=== PATIENT | female | born 1945 | race Caucasian/White ===

== ENCOUNTER → 2017-08-30 | Outpatient (CLI) | payer OTHER ==
[~2017-08-30] MED LIST: ABAC300; ALBU90OI61; AMIT10; ASPI81CH; ASPI81CH PO; FURO40; GABA300; HYDCHL50; HYDR1TAB94 PO; INSUASPI; INSULANPEN; LINZESS145 MCG; LISI20; MAGNESIUM PO; METO100ER; METO100ER PO; POTCHL10ER; PRAVASTATIN SOD10 MG; Prozac20 MG; SIMV10; TOUJEO SOL300 UNIT/1 INJ; TRAM50; TRAZ50
[2017-08-30 17:59] LABS: U Amphetamine Screen Not Detected; U Barbituate Screen Not Detected; U Benzodiazapine Screen Not Detected; U Buprenorphine Screen Not Detected; U Cannabinoids Screen Not Detected; U Cocaine Screen Not Detected; U Methadone Screen Not Detected; U Methamphetamine Screen Not Detected; U Opiates Screen DETECTED; U Oxycodone Screen Not Detected; U Phencyclidine Screen Not Detected; U Propoxyphene Screen Not Detected
[2017-09-01 14:20] LABS: Codeine Not Detected (NOTDET); Hydrocodone 357 ng/mL (NOTDET); Hydromorphone Not Detected (NOTDET); Morphine Not Detected (NOTDET); Norhydrocodone 231 ng/mL (NOTDET); Noroxycodone Not Detected (NOTDET)
== END ==
LOC: LAB 17:05
PROVIDERS: Internal Medicine
DX: Z51.81 Encounter for therapeutic drug level monitoring (principal); Z79.899 Other long term (current) drug therapy
CPT/HCPCS: G0480

== ENCOUNTER 2017-09-09 09:08 | Day surgery (SDC) | payer OTHER ==
[~2017-09-09] VITALS: Ht 157.5 cm; Wt 116.1 kg
== END 2017-09-09 11:45 | disposition home or self-care (01) ==
LOC: ORSCMMR 09:08
PROVIDERS: Internal Medicine Gastroenterology
PROC: 0DB98ZX Excision of Duodenum, Via Natural or Artificial Opening Endoscopic, Diagnostic (ICD-10-PCS; principal; 2017-09-09 10:30)
PROC: 0DB48ZX Excision of Esophagogastric Junction, Via Natural or Artificial Opening Endoscopic, Diagnostic (ICD-10-PCS; principal; 2017-09-09 10:30)
PROC: 0DB68ZX Excision of Stomach, Via Natural or Artificial Opening Endoscopic, Diagnostic (ICD-10-PCS; principal; 2017-09-09 10:30)
PROC: 0DB88ZX Excision of Small Intestine, Via Natural or Artificial Opening Endoscopic, Diagnostic (ICD-10-PCS; principal; 2017-09-09 10:30)
DX: K92.1 Melena (principal); K21.9 Gastro-esophageal reflux disease without esophagitis; R10.9 Unspecified abdominal pain; E11.9 Type 2 diabetes mellitus without complications; I10 Essential (primary) hypertension; E78.00 Pure hypercholesterolemia, unspecified; Z79.82 Long term (current) use of aspirin; Z79.4 Long term (current) use of insulin; Z79.899 Other long term (current) drug therapy
CPT/HCPCS: 82947; 88305; 88342; J2250; J3010; J7120

== ENCOUNTER → 2018-09-26 | Outpatient (CLI) | payer OTHER | LOC: LAB 12:48 → LAB SHORT 12:48 → LAB FUT 08-02 15:40 | DX: E78.5 Hyperlipidemia, unspecified (principal); F32.9 Major depressive disorder, single episode, unspecified; M79.7 Fibromyalgia; J45.909 Unspecified asthma, uncomplicated; I10 Essential (primary) hypertension; E11.9 Type 2 diabetes mellitus without complications; G99.0 Autonomic neuropathy in diseases classified elsewhere | CPT/HCPCS: 82043 ==

== ENCOUNTER → 2019-10-06 | Outpatient (CLI) | payer OTHER | LOC: LAB SHORT 16:20 → LAB 16:20 | DX: D18.01 Hemangioma of skin and subcutaneous tissue (principal); L08.9 Local infection of the skin and subcutaneous tissue, unspecified | CPT/HCPCS: 87070; 87077; 87186; 87205 ==

== ENCOUNTER 2022-03-14 15:02 | Inpatient (IN) | payer OTHER ==
[~2022-03-14] VITALS: Ht 157.5 cm; Wt 113.4 kg
[~2022-03-14 15:02] MED LIST changes: -FURO40; +FURO40 PO; -GABA300; +GABA300 PO; -INSUASPI; -LISI20; +LISI20 PO; +NOVOLOG FL100 UNIT/3 SC; -POTCHL10ER; +POTCHL10ER PO; +PRAV20 PO; -PRAVASTATIN SOD10 MG; -Prozac20 MG; +Prozac20 MG PO; -TOUJEO SOL300 UNIT/1 INJ; +TOUJEO SOL300 UNIT/2 SC; -TRAZ50; +TRAZ50 PO
[2022-03-14 16:58] LABS: Hematocrit 44.2 % (33.0-51.0); Hemoglobin 14.3 g/dL (11.5-16.0); Mean Corpuscular HGB 29.5 pg (26.0-34.0); Mean Corpuscular HGB Conc 32.4 g/dL (31.5-36.5); Mean Corpuscular Volume 91 fL (80-100); Mean Platelet Volume 10.7 fL (9.1-12.4); Platelet Count 144 K/mm3 (150-400); RDW Coefficient Variation 13.7 % (11.7-14.2); RDW Standard Deviation 46.5 fL (35.1-46.3); Red Blood Cell Count 4.85 M/mm3 (3.80-5.20); White Blood Cell Count 29.21 K/mm3 (4.00-11.30)
[2022-03-14 17:13] LABS: Bun/Creatinine Ratio 21.9 (12.0-20.0); Calcium, Blood 8.4 mg/dL (8.5-10.1); Creatinine, Blood 1.28 mg/dL (0.40-1.00); Potassium, Blood 5.4 mmol/L (3.5-5.5)
[2022-03-14 17:32] LABS: Influenza A, PCR NEGATIVE (NEGATIVE); Influenza B, PCR NEGATIVE (NEGATIVE); Resp Syncytial Virus, PCR NEGATIVE (NEGATIVE); SARS-Cov-2 (COVID-19) PCR, MMC NEGATIVE (NEGATIVE)
[2022-03-14 17:54] LABS: Source, Urine Foley catheter
[2022-03-14 18:06] LABS: Appearance, Urine Clear (Clear); Bilirubin, Urine Neg (Neg); Blood, Urine Neg (Neg); Color, Urine Yellow (P-Yellow); Glucose Qualitative, Urine Neg (Neg); Ketones, Urine Neg (Neg); Leukocyte Esterase, Urine Neg (Neg); Nitrite, Urine Neg (Neg); Protein, Urine Neg (Neg); Urobilinogen, Urine NORM (Normal)
[2022-03-14] MEDS ORDERED: FLUT1DIS5 INH (18:42)
[2022-03-14] MEDS ORDERED: GABA300 PO (18:44)
[2022-03-14] MEDS ORDERED: HYDHCL25 PO (18:45)
[2022-03-14] MEDS ORDERED: GUAI600T33 PO (18:47)
[2022-03-14] MEDS ORDERED: PANT40 PO (18:49)
[2022-03-14 20:50] LABS: BASOPHILS PERCENT MAN 0 % (0-2); BLASTS PERCENT MAN 8 % (0-0); EOSINOPHILS ABSOLUTE MAN 0.58 K/mm3 (0.00-0.68); EOSINOPHILS PERCENT MAN 2 % (0-6); LYMPHOCYTES % ATYPICAL MANUAL 10 % (0-0); LYMPHOCYTES ABSOLUTE MAN 18.11 K/mm3 (0.84-5.20); LYMPHOCYTES PERCENT MAN 52 % (21-46); MONOCYTES ABSOLUTE MAN 1.46 K/mm3 (0.16-1.47); MONOCYTES PERCENT MAN 5 % (4-13); NEUTROPHILS ABSOLUTE MAN 6.71 K/mm3 (1.96-9.15); SEG NEUTROPHILS PERCENT MAN 23 % (41-73); TOTAL CELLS COUNTED 100
[2022-03-15 04:20] LABS: Hematocrit 42.7 % (33.0-51.0); Hemoglobin 13.5 g/dL (11.5-16.0); Mean Corpuscular HGB 29.1 pg (26.0-34.0); Mean Corpuscular HGB Conc 31.6 g/dL (31.5-36.5); Mean Corpuscular Volume 92 fL (80-100); Mean Platelet Volume 10.8 fL (9.1-12.4); Platelet Count 142 K/mm3 (150-400); RDW Coefficient Variation 13.8 % (11.7-14.2); RDW Standard Deviation 46.8 fL (35.1-46.3); Red Blood Cell Count 4.64 M/mm3 (3.80-5.20); White Blood Cell Count 29.41 K/mm3 (4.00-11.30)
[2022-03-15 07:30] LABS: BASOPHILS PERCENT MAN 0 % (0-2); BLASTS PERCENT MAN 3 % (0-0); EOSINOPHILS PERCENT MAN 0 % (0-6); LYMPHOCYTES ABSOLUTE MAN 20.58 K/mm3 (0.84-5.20); MONOCYTES ABSOLUTE MAN 1.17 K/mm3 (0.16-1.47); MONOCYTES PERCENT MAN 4 % (4-13); NEUTROPHILS ABSOLUTE MAN 6.76 K/mm3 (1.96-9.15); SEG NEUTROPHILS PERCENT MAN 23 % (41-73); TOTAL CELLS COUNTED 100
[2022-03-15 07:31] LABS: LYMPHOCYTES % ATYPICAL MANUAL 6 % (0-0); LYMPHOCYTES PERCENT MAN 64 % (21-46)
--- NOTE | 2022-03-15 07:41 | NUR ---
ASSUMED CARE AT 0216. PT RESTING.NPO PREOP. KIRKPATRICK WITH CLEAR YELLOW.PT WITHOUT C/O.
--- NOTE | 2022-03-15 14:57 | NUR ---
PT ARRIVED BACK TO UNIT FROM PACU AT APROX 1200. PT HAS TWO FOAM DRESSINGS TO L HIP. REPORTS FULL SENSATION TO BLE. WIGGLES TOES ON COMMAND. REPORTED PAIN AFTER ARRIVAL, PT GIVEN 5MG ROXICODONE AND REPORTS GOOD PAIN RELIEF. SALINE LOCKED PER DR MIX. GOOD PO INTAKE. KIRKPATRICK PATENT, DRAINING CLEAR YELLOW URINE.
[2022-03-16 04:14] LABS: Hematocrit 37.2 % (33.0-51.0); Mean Corpuscular HGB 29.3 pg (26.0-34.0); Mean Corpuscular HGB Conc 32.3 g/dL (31.5-36.5); Mean Corpuscular Volume 91 fL (80-100); Mean Platelet Volume 11.2 fL (9.1-12.4); Platelet Count 147 K/mm3 (150-400); RDW Coefficient Variation 13.4 % (11.7-14.2); RDW Standard Deviation 44.6 fL (35.1-46.3); Red Blood Cell Count 4.09 M/mm3 (3.80-5.20)
[2022-03-16 04:28] LABS: Albumin/Globulin Ratio 1.1 (0.8-1.8); Bilirubin, Total 0.4 mg/dL (0.1-1.0); Bun/Creatinine Ratio 25.8 (12.0-20.0); Calcium, Blood 7.7 mg/dL (8.5-10.1); Creatinine, Blood 1.78 mg/dL (0.40-1.00); Globulin, Blood 2.8 g/dL (2.2-4.0); Magnesium, Blood 2.4 mg/dL (1.6-2.4); Potassium, Blood 5.3 mmol/L (3.5-5.5); Total Protein, Blood 5.8 g/dL (6.4-8.2)
--- NOTE | 2022-03-16 04:50 | NUR ---
SHIFT SUMMARY POD1 L HIP PINNING WITH . L HIP WITH GAUZE AND FOAM TAPE, REMAIN CDI. PT'S CBG OVER 300 BEFORE BEDTIME, CALLED DR. COELHO. ONE TIME DOSE OF 3UNITS HUMILIN ADMINISTERED. AC/HS FOR CBG. PT AOX4. KIRKPATRICK IN PLACED. SALINE LOCKED. TOLERATING PO INTAKE, DENIES NAUSEA AND VOMITING. VSS. PT ON 2L NC AT NIGHT. SATS WNL. PT REPORTS MODERATE PAIN T/O SHIFT. PAIN MANAGED WITH OXYCODONE. CALL LIGHT WITHIN REACH. WILL CONTINUE TO MONITOR AND WILL PROVIDE REPORT TO ONCOMING NURSE.
--- NOTE | 2022-03-16 06:04 | NUR ---
LABS REVIEWED, CALLED AND NOTIFIED DR. WARD ABOUT WBC AND KIDNEY FUNCTION. HE WILL REVIEW THE PT'S LABS/CHART. NO ORDERS AT THIS TIME. WILL CONTINUE TO MONITOR.
[2022-03-16 07:07] LABS: BASOPHILS PERCENT MAN 0 % (0-2); EOSINOPHILS PERCENT MAN 0 % (0-6); LYMPHOCYTES % ATYPICAL MANUAL 2 % (0-0); LYMPHOCYTES ABSOLUTE MAN 27.46 K/mm3 (0.84-5.20); MONOCYTES ABSOLUTE MAN 3.98 K/mm3 (0.16-1.47); MONOCYTES PERCENT MAN 9 % (4-13); NEUTROPHILS ABSOLUTE MAN 11.07 K/mm3 (1.96-9.15); SEG NEUTROPHILS PERCENT MAN 25 % (41-73); TOTAL CELLS COUNTED 100
[2022-03-16 07:08] LABS: BLASTS PERCENT MAN 4 % (0-0)
[2022-03-16 07:11] LABS: LYMPHOCYTES PERCENT MAN 60 % (21-46)
--- NOTE | 2022-03-16 18:09 | NUR ---
SHIFT SUMMARY PT WAS ONLY ABLE TO DANGLE w/ THERAPY. BP HAS BEEN TRENDING LOW; MD CALLED & NOTIFIED. PAIN HAS BEEN REASONABLY CONTROLLED. JED WAS CHNAGED BY DR GARDUNO DURING HIS ROUNDS. NO NEW DRNG NOTED.
--- NOTE | 2022-03-17 04:13 | NUR ---
SHIFT SUMMARY PATIENT RESTING COMFORTABLY AT THIS TIME. AOX4. TOLERATING PO INTAKE. PAIN MANAGED WITH 5MG OXY PER EMAR. KIRKPATRICK PATENT AND DRAINING, WILL DC THIS AM. PLAN FOR THERAPY TODAY. ABLE TO REPOSITON WITH ASSISTANCE. SBP UP FROM 90'S TO 125 SATS ABOVE 94% ON 2LNC. DENIES SOB, CHEST PAIN. ENCOURAGED DEEP BREATHING AND COUGHING, IS. CALL LIGHT IN REACH. WILL REPORT TO DAY RN.
[2022-03-17 08:55] LABS: Hematocrit 35.2 % (33.0-51.0); Hemoglobin 11.4 g/dL (11.5-16.0); Mean Corpuscular HGB 29.3 pg (26.0-34.0); Mean Corpuscular HGB Conc 32.4 g/dL (31.5-36.5); Mean Corpuscular Volume 91 fL (80-100); Mean Platelet Volume 11.1 fL (9.1-12.4); Platelet Count 151 K/mm3 (150-400); RDW Coefficient Variation 13.6 % (11.7-14.2); RDW Standard Deviation 45.1 fL (35.1-46.3); Red Blood Cell Count 3.89 M/mm3 (3.80-5.20); White Blood Cell Count 46.51 K/mm3 (4.00-11.30)
[2022-03-17 09:15] LABS: Bun/Creatinine Ratio 25.8 (12.0-20.0); Calcium, Blood 7.9 mg/dL (8.5-10.1); Creatinine, Blood 2.64 mg/dL (0.40-1.00); Potassium, Blood 4.9 mmol/L (3.5-5.5)
--- NOTE | 2022-03-17 17:51 | NUR ---
SHIFT SUMMARY PT's MENTATION IS MUCH CLEARER TODAY BUT STILL HAS A HARD TIME FOCUSING ON ONE THING & CHANGES TOPICS QUICKLY. WAS ABLE TO GET UP TO BSC x 2 & SAT UP IN RECLINED CHAIR FOR SEVERAL HOURS. BACK TO BED FOR DINNER w/ LLE ELEVATED. PASSING LOTS OF GAS BUT NO BM. DIET IS IMPROVING. ALTHOUGH PT STATES PAIN IS NOT IMPROVED SHE IS MOANING & MAKING MUCH LESS NOISES THAT REFLECT PAIN WELL RATING HER PAIN SCALE LOWER.
--- NOTE | 2022-03-17 18:00 | NUR ---
SHIFT SUMMARY PT WAS ABLE TO HAVE 2 THERPY SESSIONS TODAY. 1 IN AM & 1 IN AFTERNOON. WAS ABLE TO SEMI-STAND THIS AM BUT WAS TOO TIRED FOR MUCH ACTIVITY IN AFTERNOON SESSION. NEPHROLOGY TELE-CONSULT WAS COMPLETED. IVF STARTED. PT HAS POOR APPETITE BUT IS SNACKING T/O DAY. BLOOD SUGARS STILL ELEVATED BUT BP TRENDING WELL.
--- NOTE | 2022-03-18 05:59 | NUR ---
SHIFT SUMMARY PT A&OX4, PLEASANT AND COOPERATIVE. MEDICATED FOR PAIN ONCE DURING SHIFT. URINE COLLECTION WAS OBTAINED AND KIRKPATRICK UNCLAMPED, PATIENT AND DRAINING TO GRAVITY. UPPER DRESSING HAD SHADOWING, DID NOT REACH EDGES. CALL LIGHT WITHIN REACH.
[2022-03-18 06:00] LABS: Albumin, Blood 2.6 g/dL (3.4-5.0); Anion Gap 7 mmol/L (6-16); Blood Urea Nitrogen 59 mg/dL (8-24); Bun/Creatinine Ratio 32.6 (12.0-20.0); CO2, Blood 25 mmol/L (21-32); Calcium, Blood 7.7 mg/dL (8.5-10.1); Chloride, Blood 98 mmol/L (98-108); Creatinine, Blood 1.81 mg/dL (0.40-1.00); Glomerular Filtration Rate 29 (60-); Glucose, Blood 229 mg/dL (70-99); Phosphorus, Blood 4.2 mg/dL (2.5-4.9); Potassium, Blood 5.2 mmol/L (3.5-5.5); Sodium, Blood 130 mmol/L (136-145)
[2022-03-18 15:00] LABS: Hematocrit 33.3 % (33.0-51.0); Hemoglobin 10.8 g/dL (11.5-16.0); Mean Corpuscular HGB Conc 32.4 g/dL (31.5-36.5); Mean Corpuscular Volume 90 fL (80-100); NRBC ABSOLUTE 0.02 K/mm3 (0.00-0.02); NRBC Auto 0.1 /100 WBC (0.0-0.2); Platelet Count 141 K/mm3 (150-400); RDW Coefficient Variation 13.2 % (11.7-14.2); RDW Standard Deviation 43.6 fL (35.1-46.3); Red Blood Cell Count 3.72 M/mm3 (3.80-5.20); White Blood Cell Count 27.79 K/mm3 (4.00-11.30)
--- NOTE | 2022-03-18 18:09 | NUR ---
SHIFT SUMMARY POD 2 LEFT HIP PINNING. X2 AQUACELS IN PLACE, UPPER DRESSING CHANGED TODAY D/T SATURATION. NO ACUTE CHANGE STHIS SHIFT, PAIN MANAGED PER EMAR. UP TO EDGE OF BED WITH MAX ASSISTANCE WITH THERAPY. PATIENT VERY WEAK, ENCOURAGING MOBILITY AND MOTIVATION. EDUCATED ON INCENTIVE SPIROMETER, PATIENT DEMONSTRATED, ENCOURAGED FREQUENT USE. KIRKPATRICK REMAINS IN PLACE PER DR ORDER FOR STRICT I&O'S. CALLS APPROPRIATELY, WILL REPORT TO ONCOMING RN.
[2022-03-19 05:04] LABS: Albumin, Blood 2.6 g/dL (3.4-5.0); Anion Gap 5 mmol/L (6-16); Blood Urea Nitrogen 48 mg/dL (8-24); Bun/Creatinine Ratio 34.5 (12.0-20.0); CO2, Blood 27 mmol/L (21-32); Calcium, Blood 7.7 mg/dL (8.5-10.1); Chloride, Blood 101 mmol/L (98-108); Creatinine, Blood 1.39 mg/dL (0.40-1.00); Glomerular Filtration Rate 40 (60-); Glucose, Blood 208 mg/dL (70-99); Phosphorus, Blood 2.5 mg/dL (2.5-4.9); Potassium, Blood 5.1 mmol/L (3.5-5.5); Sodium, Blood 133 mmol/L (136-145)
--- NOTE | 2022-03-19 05:51 | NUR ---
SHIFT SUMMARY PT ALERT, HAD A LITTLE TROUBLE REMEMBERING WHAT HOSPITAL SHE WAS AT. NO ACUTE CHANGES T/O SHIFT. TENDS TO REMOVE HER OXYGEN IN HER SLEEP. DID NOT REQUIRE ANY PAIN COVERAGE DURING THIS SHIFT. KIRKPATRICK IN PLACE AND DRAINING TO GRAVITY YELLOW/CLEAR. CALL LIGHT WITHIN REACH.
[2022-03-19 14:01] LABS: SARS-Cov-2 (COVID-19) PCR, MMC NEGATIVE (NEGATIVE)
[2022-03-19 14:10] LABS: A/G RATIO 1.1 (0.7-1.7); ALBUMIN 2.8 g/dL (2.9-4.4); ALPHA-1-GLOBULIN 0.4 g/dL (0.0-0.4); BETA GLOBULIN 0.8 g/dL (0.7-1.3); GAMMA GLOBULIN 0.4 g/dL (0.4-1.8); GLOBULIN, TOTAL 2.5 g/dL (2.2-3.9); M-SPIKE 0.1 g/dL (Not Observed); PROTEIN, TOTAL, SERUM 5.3 g/dL (6.0-8.5)
--- NOTE | 2022-03-19 16:55 | NUR ---
SHIFT SUMMARY POD 4 LEFT HIP PINNING. X2 AQUACELS IN PLACE TO LEFT HIP, CHANGED THIS SHIFT. PATIENT TO EDGE OF BED WITH 2 MAX ASSIST, TO CHAIR WITH VANDER LIFT. UP TO CHAIR T/O SHIFT, PATIENT TOLERATED WELL. MINIMAL PAIN, MANAGED PER EMAR. CBG'S REMAIN IN LOW 200'S, COVERAGE PER EMAR. ENCOURAGE PO FLUID INTAKE T/O SHIFT. ENCOURAGE INCENTIVE SPIROMETER & DEEP BREATHING. PATIENT AWAITING SNF. CALLS APPROPRITLEY, WILL REPORT TO ONCOMING RN.
--- NOTE | 2022-03-20 05:14 | NUR ---
SHIFT SUMMARY PT A&OX4, PLEASANT AND COOPERATIVE. NO ACUTE CHANGES DURING SHIFT, VVS. MEDICATED FOR PAIN ONCE. PATIENT IS A 2 MAX ASSIST. STAFF USED A LIFT TO GET THE PATIENT IN A CHAIR YESTERDAY, PATIENT WANTED TO SLEEP IN CHAIR. KIRKPATRICK IN PLACE AND DRAINING TO GRAVITY, YELLOW/CLEAR. TOLERATING PO INTAKE, ENCOURAGING FLUIDS. MAINTAINING 2L OF OXYGEN VIA NC. CALLS APPROPRIATELY, CALL LIGHT WITHIN REACH. PLAN IS TO CONTINUE TO SEEK SNF PLACEMENT.
--- NOTE | 2022-03-20 09:24 | NUR ---
DISCHARGE NOTE: THE PATIENT WILL BE DISCHARGING TO [facility] THIS MORNING. THIS NURSE GAVE REPORT TO SAM KELLEY FROM [facility]. SAM KELLEY HAD NOT FURTHER QUESTIONS AT THIS TIME ABOUT THE PATIENT. PATIENT IS A&OX4. VS ARE WNL AND IS ON HER BASELINE OXYGEN NC ON 2L. SHE HAS 2 AQUACELS ON HER LEFT HIP THAT ARE C/D/I. DENIES NUMBNESS AND TINGLING. PATIENT HASN'T HAD A BM SINCE 03/17/22 BUT SHE DENIES ABD PAIN/DISCOMFORT, PATIENT IS PASSING GAS, AND HAS BEEN ON STOOL SOFTENERS EVERYDAY. PATIENT IS TOLERATING PO INTAKE. KIRKPATRICK IS PATENT AND DRAINING YELLOW URINE. SHE WILL BE GOING TO [facility] WITH THE KIRKPATRICK. SHE IS A 1-2 PERSON MODERATE ASSIST WITH FWW AND GAIT BELT. PAIN IS MANAGED WITH PO PAIN MEDICATION. HER ITEMS ARE GATHERED IN THE ROOM. AWAITING FOR TRANSPORT TO COME AROUND 10 THIS MORNING.
[2022-03-20 09:47] LABS: Bun/Creatinine Ratio 29.5 (12.0-20.0); Calcium, Blood 8.2 mg/dL (8.5-10.1); Creatinine, Blood 1.12 mg/dL (0.40-1.00); Potassium, Blood 4.8 mmol/L (3.5-5.5)
--- NOTE | 2022-03-20 10:33 | NUR ---
TRANSPORT JUST CAME TO [place]PPER MARKER THE PATIENT TO TAKE OVER TO [facility]. PATIENT HAS ITEMS IN THE ROOM GATHERED. IV WAS TAKEN OUT AND WNL. SHE IS BEING WHEELCHAIRED DOWN TO THE TRANSPORT VAN.
[2022-03-26 11:11] LABS: M-SPIKE, % Not Observed % (Not Observed); PROTEIN,TOTAL,URINE 6.1 mg/dL (Not Estab.)
== END 2022-03-20 10:34 | DRG 481 ==
LOC: ER 15:02 → SURS 18:32
PROVIDERS: Internal Medicine; Internal Medicine Nephrology; Orthopaedic Surgery; Student in an Organized Health Care Education/Training Program; ADMIT Hospitalist
PROC: 0QS734Z Reposition Left Upper Femur with Internal Fixation Device, Percutaneous Approach (ICD-10-PCS; principal; 2022-03-15 08:30)
DX: S72.142A Displaced intertrochanteric fracture of left femur, initial encounter for closed fracture (principal); C91.10 Chronic lymphocytic leukemia of B-cell type not having achieved remission; N17.9 Acute kidney failure, unspecified; Z68.42 Body mass index [BMI] 45.0-49.9, adult; Z20.822 Contact with and (suspected) exposure to COVID-19; J45.909 Unspecified asthma, uncomplicated; I12.9 Hypertensive chronic kidney disease with stage 1 through stage 4 chronic kidney disease, or unspecified chronic kidney disease; N18.32 Chronic kidney disease, stage 3b; I95.1 Orthostatic hypotension; D69.6 Thrombocytopenia, unspecified; E11.22 Type 2 diabetes mellitus with diabetic chronic kidney disease; E78.00 Pure hypercholesterolemia, unspecified; E66.9 Obesity, unspecified; S72.22XA Displaced subtrochanteric fracture of left femur, initial encounter for closed fracture; Z99.81 Dependence on supplemental oxygen; Z90.89 Acquired absence of other organs; Z90.10 Acquired absence of unspecified breast and nipple; Z98.890 Other specified postprocedural states; Z87.891 Personal history of nicotine dependence; Z88.2 Allergy status to sulfonamides; Z88.8 Allergy status to other drugs, medicaments and biological substances; Z79.4 Long term (current) use of insulin; Z79.51 Long term (current) use of inhaled steroids; Z79.82 Long term (current) use of aspirin; Z79.899 Other long term (current) drug therapy; W18.39XA Other fall on same level, initial encounter; Y92.009 Unspecified place in unspecified non-institutional (private) residence as the place of occurrence of the external cause; Y92.219 Unspecified school as the place of occurrence of the external cause
CPT/HCPCS: 0241U; 36415; 51702; 71045; 73502; 76770; 80048; 80053; 80069; 81003; 82550; 82570; 82947; 83735; 84156; 84165; 84166; 85025; 85027; 94760; 94762; 96374-59; 97110; 97162; 97166; 97530; 97535; 99285-25; A9270; C1713; C1769; J0690; J1100; J1650; J1815; J2370; J2405; J2704; J3010; J7030; J7120; U0004

== ENCOUNTER → 2022-04-20 | Outpatient (CLI) | payer OTHER ==
[~2022-04-20] MED LIST changes: +FLUT1DIS5 INH; +GUAI600T33 PO; +HYDHCL25 PO; +PANT40 PO
[2022-04-20 18:44] LABS: Hematocrit 39.2 % (33.0-51.0); Hemoglobin 11.8 g/dL (11.5-16.0); Mean Corpuscular HGB 28.9 pg (26.0-34.0); Mean Corpuscular HGB Conc 30.1 g/dL (31.5-36.5); Mean Corpuscular Volume 96 fL (80-100); Mean Platelet Volume 11.2 fL (9.1-12.4); Platelet Count 160 K/mm3 (150-400); RDW Coefficient Variation 14.6 % (11.7-14.2); RDW Standard Deviation 51.2 fL (35.1-46.3); Red Blood Cell Count 4.08 M/mm3 (3.80-5.20); White Blood Cell Count 19.84 K/mm3 (4.00-11.30)
[2022-04-20 19:12] LABS: Albumin, Blood 2.9 g/dL (3.4-5.0); Albumin/Globulin Ratio 1.2 (0.8-1.8); Bilirubin, Total 0.4 mg/dL (0.1-1.0); Bun/Creatinine Ratio 12.3 (12.0-20.0); Calcium, Blood 8.8 mg/dL (8.5-10.1); Creatinine, Blood 0.97 mg/dL (0.40-1.00); Globulin, Blood 2.4 g/dL (2.2-4.0); Phosphorus, Blood 4.1 mg/dL (2.5-4.9); Potassium, Blood 4.8 mmol/L (3.5-5.5); Total Protein, Blood 5.3 g/dL (6.4-8.2)
[2022-04-20 20:01] LABS: BASOPHILS ABSOLUTE MAN 0.19 K/mm3 (0.00-0.23); BASOPHILS PERCENT MAN 1 % (0-2); EOSINOPHILS PERCENT MAN 0 % (0-6); LYMPHOCYTES ABSOLUTE MAN 14.88 K/mm3 (0.84-5.20); MONOCYTES ABSOLUTE MAN 0.59 K/mm3 (0.16-1.47); MONOCYTES PERCENT MAN 3 % (4-13); NEUTROPHILS ABSOLUTE MAN 4.16 K/mm3 (1.96-9.15); SEG NEUTROPHILS PERCENT MAN 21 % (41-73); TOTAL CELLS COUNTED 100
[2022-04-20 20:03] LABS: LYMPHOCYTES PERCENT MAN 75 % (21-46)
== END | disposition home or self-care (01) ==
LOC: LAB SHORT 17:34 → LAB 17:34
PROVIDERS: Internal Medicine Hematology & Oncology
DX: I12.9 Hypertensive chronic kidney disease with stage 1 through stage 4 chronic kidney disease, or unspecified chronic kidney disease (principal); N18.9 Chronic kidney disease, unspecified; J18.9 Pneumonia, unspecified organism
CPT/HCPCS: 80053; 82607; 82746; 84100; 85025

== ENCOUNTER 2022-07-16 07:34 | Emergency (ER) | payer OTHER ==
[~2022-07-16] VITALS: Ht 157.5 cm; Wt 113.4 kg
[2022-07-16 08:35] LABS: Hematocrit 42.6 % (33.0-51.0); Hemoglobin 13.4 g/dL (11.5-16.0); Mean Corpuscular HGB 27.6 pg (26.0-34.0); Mean Corpuscular HGB Conc 31.5 g/dL (31.5-36.5); Mean Corpuscular Volume 88 fL (80-100); Mean Platelet Volume 9.7 fL (9.1-12.4); Platelet Count 179 K/mm3 (150-400); RDW Coefficient Variation 14.4 % (11.7-14.2); RDW Standard Deviation 46.2 fL (35.1-46.3); Red Blood Cell Count 4.86 M/mm3 (3.80-5.20); White Blood Cell Count 31.88 K/mm3 (4.00-11.30)
[2022-07-16 08:52] LABS: Albumin, Blood 3.1 g/dL (3.4-5.0); Albumin/Globulin Ratio 0.8 (0.8-1.8); Bilirubin, Total 0.7 mg/dL (0.1-1.0); Bun/Creatinine Ratio 13.2 (12.0-20.0); Calcium, Blood 9.1 mg/dL (8.5-10.1); Creatinine, Blood 0.91 mg/dL (0.40-1.00); Globulin, Blood 3.9 g/dL (2.2-4.0)
[2022-07-16 09:09] LABS: Influenza A, PCR NEGATIVE (NEGATIVE); Influenza B, PCR NEGATIVE (NEGATIVE); Resp Syncytial Virus, PCR NEGATIVE (NEGATIVE); SARS-Cov-2 (COVID-19) PCR, MMC NEGATIVE (NEGATIVE)
[2022-07-16 09:33] LABS: BASOPHILS PERCENT MAN 0 % (0-2); BLASTS PERCENT MAN 2 % (0-0); EOSINOPHILS PERCENT MAN 0 % (0-6); LYMPHOCYTES ABSOLUTE MAN 14.02 K/mm3 (0.84-5.20); LYMPHOCYTES PERCENT MAN 44 % (21-46); MONOCYTES ABSOLUTE MAN 6.37 K/mm3 (0.16-1.47); MONOCYTES PERCENT MAN 20 % (4-13); MYELOCYTE ABSOLUTE MAN 0.31 K/mm3 (0.00-0.00); MYELOCYTE PERCENT MAN 1 % (0-0); NEUTROPHILS ABSOLUTE MAN 10.52 K/mm3 (1.96-9.15); SEG NEUTROPHILS PERCENT MAN 33 % (41-73); TOTAL CELLS COUNTED 100
[2022-07-16] MEDS ORDERED: Lasix40 MG PO (10:56)
[2022-07-16] MEDS ORDERED: CEFD300 PO (10:56)
[2022-07-16] MEDS ORDERED: Zithromax250 MG PO (10:56)
== END 2022-07-16 12:00 | disposition home or self-care (01) ==
LOC: ER 07:34
PROVIDERS: Physician Assistant
DX: J18.9 Pneumonia, unspecified organism (principal); I11.0 Hypertensive heart disease with heart failure; I50.9 Heart failure, unspecified; E11.9 Type 2 diabetes mellitus without complications; Z87.891 Personal history of nicotine dependence; Z20.822 Contact with and (suspected) exposure to COVID-19
CPT/HCPCS: 0241U; 36415; 71045; 80053; 83880; 84484; 85025; 93005; 93010; 94644; 94664

== ENCOUNTER → 2023-03-08 | Outpatient (CLI) | payer OTHER ==
[~2023-03-08] MED LIST changes: +CEFD300 PO; +Lasix40 MG PO; +Zithromax250 MG PO
== END ==
LOC: LAB 16:04 → LAB SHORT 16:04
DX: E11.9 Type 2 diabetes mellitus without complications (principal); Z79.4 Long term (current) use of insulin
CPT/HCPCS: 82043

== ENCOUNTER 2023-11-08 22:24 | Emergency (ER) | payer OTHER ==
[~2023-11-08] VITALS: Ht 157.5 cm; Wt 115.7 kg
[2023-11-08] MEDS ORDERED: NS 1,000 ML IV SCH (23:45)
[2023-11-09 00:53] LABS: Hematocrit 40.9 % (33.0-51.0); Hemoglobin 12.4 g/dL (11.5-16.0); Mean Corpuscular HGB 25.6 pg (26.0-34.0); Mean Corpuscular HGB Conc 30.3 g/dL (31.5-36.5); Mean Corpuscular Volume 85 fL (80-100); Mean Platelet Volume 11.4 fL (9.1-12.4); Platelet Count 253 K/mm3 (150-400); RDW Coefficient Variation 14.1 % (11.7-14.2); RDW Standard Deviation 43.3 fL (35.1-46.3); Red Blood Cell Count 4.84 M/mm3 (3.80-5.20)
[2023-11-09] MEDS ORDERED: Ondansetron HCl 2 MG / ML 2ML Vial IV ONE (00:55)
[2023-11-09] MEDS ORDERED: Morphine Sulfate 4 MG/1 ML Injection IV ONE ×2 (00:55→04:45)
[2023-11-09 00:56] LABS: White Blood Cell Count 54.49 K/mm3 (4.00-11.30)
[2023-11-09 01:11] LABS: BASOPHILS PERCENT MAN 0 % (0-2); EOSINOPHILS PERCENT MAN 0 % (0-6); LYMPHOCYTES ABSOLUTE MAN 45.22 K/mm3 (0.84-5.20); LYMPHOCYTES PERCENT MAN 83 % (21-46); MONOCYTES ABSOLUTE MAN 0.54 K/mm3 (0.16-1.47); MONOCYTES PERCENT MAN 1 % (4-13); NEUTROPHILS ABSOLUTE MAN 8.71 K/mm3 (1.96-9.15); SEG NEUTROPHILS PERCENT MAN 16 % (41-73); TOTAL CELLS COUNTED 100
[2023-11-09 01:20] LABS: Albumin, Blood 2.9 g/dL (3.4-5.0); Albumin/Globulin Ratio 0.8 (0.8-1.8); Bilirubin, Total 0.6 mg/dL (0.1-1.0); Bun/Creatinine Ratio 16.8 (12.0-20.0); Calcium, Blood 9.3 mg/dL (8.5-10.1); Creatinine, Blood 1.19 mg/dL (0.40-1.00); Globulin, Blood 3.7 g/dL (2.2-4.0); Potassium, Blood 4.8 mmol/L (3.5-5.5); Total Protein, Blood 6.6 g/dL (6.4-8.2)
[2023-11-09 03:16] LABS: Source, Urine Clean Catch
[2023-11-09 03:29] LABS: Blood, Urine 1+ (Neg); Glucose Qualitative, Urine 1+ (Neg); Ketones, Urine 3+ (Neg); Leukocyte Esterase, Urine 1+ (Neg); Nitrite, Urine Neg (Neg); Protein, Urine 3+ (Neg); Specific Gravity, Urine 1.025 (1.003-1.022); Urobilinogen, Urine 1+ (Normal)
[2023-11-09 03:41] LABS: Appearance, Urine Clear (Clear); Bilirubin, Urine 1+ (Neg); Color, Urine Amber (P-Yellow)
[2023-11-09 03:43] LABS: Bacteria Few /hpf; Red Blood Cells, Urine 0-2 /hpf (0-2); Squamous Epithelial Cells Few /hpf (Few); White Blood Cells, Urine 0-2 /hpf (0-5)
[2023-11-09 03:44] LABS: Amorphous Light (0-Heavy); Mucus Light (0-Heavy)
[2023-11-09] MEDS ORDERED: Doxycycline Hyclate 100 MG TAB PO ONE (04:45)
[2023-11-09] MEDS ORDERED: NS 1,000 ML IV SCH (04:45)
[2023-11-09] MEDS ORDERED: Keflex500 MG PO (04:47)
[2023-11-09] MEDS ORDERED: Ondansetron Odt8 MG MM (04:47)
[2023-11-09] MEDS ORDERED: CYCL10 PO (04:47)
[2023-11-09] MEDS ORDERED: Cephalexin Monohydrate 500 MG Cap PO ONE (04:50)
[2023-11-09 07:08] VITALS: BP 140/76
== END 2023-11-09 07:11 | disposition home or self-care (01) ==
LOC: ER 22:24
PROVIDERS: Emergency Medicine
DX: R10.84 Generalized abdominal pain (principal); G89.29 Other chronic pain; M54.50 Low back pain, unspecified; L03.114 Cellulitis of left upper limb; E86.0 Dehydration; R11.2 Nausea with vomiting, unspecified; R53.1 Weakness; K80.20 Calculus of gallbladder without cholecystitis without obstruction; C91.10 Chronic lymphocytic leukemia of B-cell type not having achieved remission; I10 Essential (primary) hypertension; E78.00 Pure hypercholesterolemia, unspecified; E11.9 Type 2 diabetes mellitus without complications; Z88.8 Allergy status to other drugs, medicaments and biological substances; Z88.2 Allergy status to sulfonamides; Z88.6 Allergy status to analgesic agent; Z79.82 Long term (current) use of aspirin; Z79.4 Long term (current) use of insulin; Z79.899 Other long term (current) drug therapy; Z87.891 Personal history of nicotine dependence
CPT/HCPCS: 74176; 80053; 81001; 83605; 83690; 85025; 93005; 93010; 96361; 96374; 96375; 96376; 99284; A9270; J2270; J2405; J7030; P9612